=== PATIENT | female | born 1955 | race Caucasian/White ===

== ENCOUNTER 2017-12-12 11:09 | Emergency (ER) | payer OTHER ==
[~2017-12-12] VITALS: Ht 144.8 cm; Wt 59.0 kg
[~2017-12-12 11:09] MED LIST: LEVE100S PO; LEVOTHYROXINE; LISINOPRIL; METOCLOPRAMIDE; OMEPRAZOLE
[2017-12-12] MEDS ORDERED: SODIUM CHLORIDE 0.9% 1,000 ML IV ONE (11:46)
[2017-12-12 12:54] LABS: EOSINOPHILS % 1.8 % (0.0-5.0); HEMATOCRIT. 43.3 % (36.0-48.0); HEMOGLOBIN. 14.2 g/dL (12.0-16.0); LYMPHOCYTES % 15.2 % (20.0-50.0); MEAN CORPUSCULAR HEMOGLOBIN 27.8 pg (28.0-32.0); MEAN CORPUSCULAR VOLUME 84.3 fL (81.0-99.0); MEAN PLATELET VOLUME 10.8 fl (7.4-10.4); MONOCYTES % 7.5 % (2.0-8.0); NEUTROPHILS % 74.5 % (40.0-76.0); PLATELET 271 x1000/uL (130-400); RED BLOOD CELL COUNT 5.13 mill/uL (4.2-5.4); RED CELL DISTRIBUTION WIDTH 15.5 % (11.6-14.6)
[2017-12-12 13:01] LABS: CHLORIDE 107 mEq/L (98-107)
[2017-12-12 14:30] VITALS: BP 140/81
== END 2017-12-12 14:33 | disposition home or self-care (01) ==
LOC: ER 11:17
DX: R19.7 Diarrhea, unspecified (principal); R53.1 Weakness; E78.00 Pure hypercholesterolemia, unspecified; I10 Essential (primary) hypertension; Z88.0 Allergy status to penicillin; Z86.73 Personal history of transient ischemic attack (TIA), and cerebral infarction without residual deficits
CPT/HCPCS: 36415; 71045; 80053; 83690; 85025; 87804; 93005; 96360; 99285; J7030

== ENCOUNTER 2018-08-09 11:19 | Inpatient (IN) | payer OTHER, MEDICAID ==
[~2018-08-09] VITALS: Ht 157.5 cm; Wt 60.8 kg
[2018-08-09 13:19] LABS: BASOPHILS % 0.7 % (0.0-2.0); EOSINOPHILS % 3.8 % (0.0-5.0); HEMATOCRIT. 42.5 % (36.0-48.0); LYMPHOCYTES % 24.9 % (20.0-50.0); MEAN CORPUSCULAR HEMOGLOBIN 29.3 pg (28.0-32.0); MEAN CORPUSCULAR VOLUME 88.8 fL (81.0-99.0); MEAN PLATELET VOLUME 11.5 fl (7.4-10.4); MONOCYTES % 10.3 % (2.0-8.0); NEUTROPHILS % 60.3 % (40.0-76.0); PLATELET 274 x1000/uL (130-400); RED BLOOD CELL COUNT 4.79 mill/uL (4.2-5.4)
[2018-08-09 13:21] LABS: CHLORIDE 106 mEq/L (98-107)
[2018-08-09 18:42] LABS: CLARITY URINE CLEAR (CLEAR); COLOR URINE DARK YELLOW (YELLOW); KETONES URINE NEGATIVE (NEGATIVE); LEUKOCYTE ESTERASE URINE TRACE (NEGATIVE); NITRITE URINE NEGATIVE (NEGATIVE); OCCULT BLOOD URINE TRACE (NEGATIVE); PH URINE 6.5 (4.5-8.0); PROTEIN URINE NEGATIVE (NEGATIVE); SPECIFIC GRAVITY URINE 1.017 (1.005-1.030); UROBILINOGEN URINE 0.2 E.U./dL (0.2-1.0)
[2018-08-09 18:56] LABS: *AMPHETAMINES SCREEN URINE NEGATIVE (NEGATIVE); *BENZODIAZEPINES SCREEN URINE NEGATIVE (NEGATIVE)
[2018-08-09 18:57] LABS: *BARBITURATES SCREEN URINE NEGATIVE (NEGATIVE); *COCAINE SCREEN URINE NEGATIVE (NEGATIVE); CANNABINOID URINE SCREEN NEGATIVE (NEGATIVE); METHADONE URINE SCREEN NEGATIVE (NEGATIVE); OPIATES URINE SCREEN NEGATIVE (NEGATIVE); PHENCYCLIDINE URINE SCREEN NEGATIVE (NEGATIVE)
[2018-08-09] MEDS ORDERED: DIATR MEGLU/DIATRIZOATE SOLN 30ML ONE (20:36)
[2018-08-09] MEDS ORDERED: LEVOFLOXACIN 500MG PREMIX 100 ML IV ONE (22:00)
[2018-08-09] MEDS ORDERED: SODIUM CHLORIDE 0.9% 500 ML IV ONE (22:00)
[2018-08-09] MEDS ORDERED: MAGNESIUM/ALUMINUM HYDROXIDE/SIMETHICONE 30ML UDC PO PRN (23:15)
[2018-08-09] MEDS ORDERED: DOCUSATE SODIUM 100MG CAPSULE PO PRN (23:15)
[2018-08-09] MEDS ORDERED: IPRATROPIUM/ALBUTEROL 0.5-3(2.5)MG/3ML NEB INH PRN (23:15)
[2018-08-09] MEDS ORDERED: HYDROCODONE/ACETAMINOPHEN 5/325MG TABLET PO PRN (23:15)
[2018-08-09] MEDS ORDERED: ONDANSETRON HCL 4MG/2ML INJ IV PRN (23:15)
[2018-08-09] MEDS ORDERED: ACETAMINOPHEN 325MG TABLET PO PRN (23:15)
[2018-08-09] MEDS ORDERED: LEVOFLOXACIN 500MG PREMIX 100 ML IV SCH (23:15)
[2018-08-09] MEDS ORDERED: CLONIDINE 0.1MG TABLET PO PRN (23:15)
[2018-08-09] MEDS ORDERED: GUAIFENESIN 200MG/10ML SUGAR FREE UDC PO PRN (23:15)
[2018-08-10 01:04] LABS: CHLORIDE 107 mEq/L (98-107)
[2018-08-10 03:00] VITALS: BP 151/72
[2018-08-10 06:38] LABS: EOSINOPHILS % 1.7 % (0.0-5.0); HEMATOCRIT. 40.1 % (36.0-48.0); HEMOGLOBIN. 13.6 g/dL (12.0-16.0); LYMPHOCYTES % 18.2 % (20.0-50.0); MEAN CORPUSCULAR HEMOGLOBIN 29.7 pg (28.0-32.0); MEAN CORPUSCULAR VOLUME 87.9 fL (81.0-99.0); MEAN PLATELET VOLUME 11.4 fl (7.4-10.4); MONOCYTES % 9.1 % (2.0-8.0); PLATELET 252 x1000/uL (130-400); RED BLOOD CELL COUNT 4.56 mill/uL (4.2-5.4); RED CELL DISTRIBUTION WIDTH 12.8 % (11.6-14.6)
[2018-08-10 07:36] LABS: LDL CHOLESTEROL 106 mg/dL (5-100)
[2018-08-10 07:37] LABS: CREATINE KINASE 44 IU/L (26-192); HDL CHOLESTEROL 33 mg/dL (40-59)
[2018-08-10 07:42] LABS: CREATINE KINASE MB FRACTION < 1.0 ng/mL (0.5-3.6)
[2018-08-10 08:07] VITALS: BP 146/71
[2018-08-10] MEDS: ENOXAPARIN 40MG/0.4ML SYR SUBCUT SCH (09:43)
[2018-08-10] MEDS ORDERED: LISI2.5T47 MT (11:49)
[2018-08-10] MEDS ORDERED: LEVO100T9 MT (11:49)
[2018-08-10] MEDS ORDERED: OMEP20TA15 PO (11:52)
[2018-08-10 12:00] VITALS: BP 138/79
[2018-08-10] MEDS ORDERED: ACETAMINOPHEN 325MG TABLET PO PRN (13:45)
[2018-08-10] MEDS ORDERED: HYDROCODONE/ACETAMINOPHEN 5/325MG TABLET PO PRN (13:45)
[2018-08-10] MEDS: LISINOPRIL 20MG TABLET PO SCH (14:17)
[2018-08-10 16:00] VITALS: BP 138/79
[2018-08-10 16:46] LABS: CREATINE KINASE 64 IU/L (26-192)
[2018-08-10 16:47] LABS: CREATINE KINASE MB FRACTION < 1.0 ng/mL (0.5-3.6)
[2018-08-10] MEDS: LEVETIRACETAM 500MG/5ML CUP PO SCH (17:35)
[2018-08-10 20:00] VITALS: BP 123/81
[2018-08-10] MEDS ORDERED: LEVOFLOXACIN 500MG PREMIX 100 ML IV SCH (22:00)
[2018-08-11] VITALS: BP 133/50
[2018-08-11 04:00] VITALS: BP 131/77
[2018-08-11 07:15] LABS: BASOPHILS % 0.9 % (0.0-2.0); EOSINOPHILS % 4.2 % (0.0-5.0); HEMATOCRIT. 38.3 % (36.0-48.0); LYMPHOCYTES % 24.3 % (20.0-50.0); MEAN CORPUSCULAR HEMOGLOBIN 29.8 pg (28.0-32.0); MEAN CORPUSCULAR VOLUME 87.5 fL (81.0-99.0); MEAN PLATELET VOLUME 11.6 fl (7.4-10.4); MONOCYTES % 11.4 % (2.0-8.0); NEUTROPHILS % 59.2 % (40.0-76.0); PLATELET 249 x1000/uL (130-400); RED BLOOD CELL COUNT 4.37 mill/uL (4.2-5.4); RED CELL DISTRIBUTION WIDTH 13.1 % (11.6-14.6)
[2018-08-11 07:22] LABS: CHLORIDE 109 mEq/L (98-107)
[2018-08-11] MEDS ORDERED: LEVOTHYROXINE SODIUM 100MCG TABLET PO SCH (07:40)
[2018-08-11] MEDS ORDERED: OMEPRAZOLE 20MG CAPSULE EXTENDED RELEASE PO SCH (07:40)
[2018-08-11 08:00] VITALS: BP 135/70
[2018-08-11] MEDS: LEVETIRACETAM 500MG/5ML CUP PO SCH (09:04)
[2018-08-11] MEDS: ENOXAPARIN 40MG/0.4ML SYR SUBCUT SCH (09:04)
[2018-08-11] MEDS: LISINOPRIL 20MG TABLET PO SCH (09:05)
[2018-08-11 12:12] VITALS: BP 128/79
[2018-08-11 14:55] VITALS: BP 128/79
[2018-08-11] MEDS ORDERED: SODIUM CHLORIDE 0.9% 1,000 ML IV ONE (15:15)
[2018-08-11 16:00] VITALS: BP 131/76
== END 2018-08-11 17:25 | disposition home or self-care (01) | DRG 919 ==
LOC: ER 11:19 → 7WST 19:45 → EDBEDREQ 19:53 → EDBEDREQTM 19:53 → CANRESERV 08-10 02:04 → ENRESERV 08-10 02:04
PROVIDERS: ADMIT Internal Medicine; ATTEND Internal Medicine
PROC: 0DH63UZ Insertion of Feeding Device into Stomach, Percutaneous Approach (ICD-10-PCS; principal; 2018-08-09)
DX: T85.528A Displacement of other gastrointestinal prosthetic devices, implants and grafts, initial encounter (principal); G82.50 Quadriplegia, unspecified; I69.351 Hemiplegia and hemiparesis following cerebral infarction affecting right dominant side; Y83.3 Surgical operation with formation of external stoma as the cause of abnormal reaction of the patient, or of later complication, without mention of misadventure at the time of the procedure; E03.9 Hypothyroidism, unspecified; E78.5 Hyperlipidemia, unspecified; G40.909 Epilepsy, unspecified, not intractable, without status epilepticus; I10 Essential (primary) hypertension; M41.9 Scoliosis, unspecified; S30.810A Abrasion of lower back and pelvis, initial encounter; X58.XXXA Exposure to other specified factors, initial encounter; Y93.89 Activity, other specified; Y99.8 Other external cause status; Z93.3 Colostomy status; Z90.49 Acquired absence of other specified parts of digestive tract; Z87.01 Personal history of pneumonia (recurrent); Z74.01 Bed confinement status; Y92.89 Other specified places as the place of occurrence of the external cause; Z79.899 Other long term (current) drug therapy; Z88.0 Allergy status to penicillin; Z93.0 Tracheostomy status
CPT/HCPCS: 36415; 43760; 71045; 71250; 74018; 80048; 80053; 80061; 80305; 81003; 82550; 82553; 83036; 83735; 83880; 84443; 84484; 85025; 87040; 87086; 93005; 93970; 99285; A6261; J1650; J1956; J7030; J7040; Q9963

== ENCOUNTER 2025-02-22 09:14 | Inpatient (IN) | payer BC, OTHER ==
[~2025-02-22] VITALS: Ht 152.4 cm; Wt 57.6 kg
[2025-02-22] VITALS (45 sets, daily range): BP systolic 79–132; BP diastolic 54–81; PULSE 81–122; RESP 18–24; TEMP 36.8–36.9; O2SAT 95–100
[~2025-02-22 09:14] MED LIST changes: +LEVO100T9 MT; -LEVOTHYROXINE; +LISI2.5T47 MT; -LISINOPRIL; -METOCLOPRAMIDE; +OMEP20TA15 PO; -OMEPRAZOLE
[2025-02-22] MEDS: SODIUM CHLORIDE 0.9% (SEPSIS BOLUS) IV ONE (09:53)
[2025-02-22] MEDS: MEROPENEM 1G/100ML 100 ML IV ONE (10:11)
[2025-02-22 10:22] LABS: HEMATOCRIT. 49.1 % (36.0-48.0); HEMOGLOBIN. 14.6 g/dL (12.0-16.0); MEAN CORPUSCULAR HEMOGLOBIN 27.8 pg (28.0-32.0); MEAN CORPUSCULAR HGB CONC 29.8 g/dL (31.0-37.0); MEAN CORPUSCULAR VOLUME 93.1 fL (81.0-99.0); RED BLOOD CELL COUNT 5.28 mill/uL (4.2-5.4); RED CELL DISTRIBUTION WIDTH 14.5 % (11.6-14.6); WHITE BLOOD COUNT 30.8 x1000/uL (4.5-11.0)
[2025-02-22 10:30] LABS: BG BASE EXCESS -10.2 mmol/L (-2.0-3.0); BG CARBOXYHEMOGLOBIN 0.5 % (0.5-1.5); BG DEOXYHEMOGLOBIN 8.2 % (0.0-5.0); BG FRACTION INSPIRED OXYGEN 100; BG HCO3 ACT 25.7 mmol/L (21.0-28.0); BG METHEMOGLOBIN 0.3 % (0.5-1.5); BG OXYGEN SATURATION 91.7 % (94.0-98.0); BG PCO2 126.1 mmHg (32.0-45.0); BG PH 6.927 (7.350-7.450); BG PO2 92.4 mmHg (83.0-108.0); BG SAMPLE SITE RIGHT RADIAL; BG TOTAL HEMOGLOBIN 15.1 g/dL (12.0-16.0); BG VENT MODE MASK - NRB
[2025-02-22 10:34] LABS: CARBON DIOXIDE 16 mEq/L (21-32); CHLORIDE 105 mEq/L (98-107); POTASSIUM 4.2 mEq/L (3.5-5.1); SODIUM 140 mEq/L (136-145)
[2025-02-22 10:35] LABS: CALCIUM 9.5 mg/dL (8.7-10.4)
[2025-02-22 10:39] LABS: CREATININE 1.2 mg/dL (0.6-1.0); DIFFERENTIAL COMMENT 1
[2025-02-22 10:40] LABS: GLUCOSE 307 mg/dL (70-105); TROPONIN I HIGH SENSITIVITY 20 ng/L (3.0-34); UREA NITROGEN BLOOD 25 mg/dL (9-23)
[2025-02-22 10:41] LABS: ALANINE AMINOTRANSFERASE 13 IU/L (10-49); ALBUMIN 4.1 g/dL (3.2-4.8); ASPARTATE AMINOTRANSFERASE 14 IU/L (<34)
[2025-02-22 10:42] LABS: BILIRUBIN DIRECT 0.1 mg/dL (<=3.0); BILIRUBIN TOTAL 0.4 mg/dL (0.1-1.0); PROTEIN TOTAL 8.5 g/dL (6.0-8.3); PROTHROMBIN TIME 10.9 sec (9.6-11.0)
[2025-02-22 10:43] LABS: LACTIC ACID 12.1 mmol/L (0.4-2.0)
[2025-02-22] MEDS: ETOMIDATE 2MG/ML 10ML VIAL IV ONE (11:10)
[2025-02-22] MEDS: SUCCINYLCHOLINE CHLORIDE 200MG/10ML IV ONE (11:10)
[2025-02-22 11:30] LABS: PLATELET ESTIMATE NORMAL
[2025-02-22 11:32] LABS: MEAN PLATELET VOLUME 12.5 fl (7.4-10.4); PLATELET 248 x1000/uL (130-400)
[2025-02-22 11:37] LABS: CLARITY URINE CLOUDY (CLEAR); COLOR URINE YELLOW (YELLOW); GLUCOSE URINE NEGATIVE (NEGATIVE); KETONES URINE NEGATIVE (NEGATIVE); LEUKOCYTE ESTERASE URINE 3+ (NEGATIVE); NITRITE URINE NEGATIVE (NEGATIVE); OCCULT BLOOD URINE 2+ (NEGATIVE); PH URINE 6.5 (4.5-8.0); PROTEIN URINE 3+ (NEGATIVE); SPECIFIC GRAVITY URINE 1.016 (1.005-1.030)
[2025-02-22] MEDS: VANCOMYCIN 1G PREMIX 200 ML IV ONE (11:37)
[2025-02-22 11:51] LABS: BACTERIA URINE 2+; COARSE GRANULAR CASTS URINE 0-5 /lpf; RBC URINE 15-25 /hpf (0-2); SQUAMOUS EPITHELIAL CELL URINE 1+ /lpf (RARE/1+); WBC URINE 50-100 /hpf (0-2); YEAST URINE NONE SEEN
[2025-02-22] MEDS ORDERED: MIDAZOLAM HCL 100 MG in DEXT 5% WATER 80 ML IV ONE (12:15)
[2025-02-22 12:37] LABS: BG BASE EXCESS -2.8 mmol/L (-2.0-3.0); BG CARBOXYHEMOGLOBIN 0.4 % (0.5-1.5); BG FRACTION INSPIRED OXYGEN 100; BG HCO3 ACT 19.3 mmol/L (21.0-28.0); BG METHEMOGLOBIN 0.3 % (0.5-1.5); BG OXYHEMOGLOBIN 99.3 % (94.0-98.0); BG PCO2 26.8 mmHg (32.0-45.0); BG PH 7.475 (7.350-7.450); BG PO2 272.4 mmHg (83.0-108.0); BG SAMPLE SITE LEFT RADIAL; BG TOTAL HEMOGLOBIN 13.9 g/dL (12.0-16.0); BG VENT MODE VENT - PRVC
[2025-02-22] MEDS: MIDAZOLAM 100MG/100ML PMX 100 ML IV ONE (12:38)
[2025-02-22 14:56] LABS: BG BASE EXCESS 0.6 mmol/L (-2.0-3.0); BG CARBOXYHEMOGLOBIN 0.1 % (0.5-1.5); BG DEOXYHEMOGLOBIN 0.2 % (0.0-5.0); BG FRACTION INSPIRED OXYGEN 85; BG METHEMOGLOBIN 0.3 % (0.5-1.5); BG OXYGEN SATURATION 99.8 % (94.0-98.0); BG OXYHEMOGLOBIN 99.4 % (94.0-98.0); BG PCO2 34.7 mmHg (32.0-45.0); BG PH 7.457 (7.350-7.450); BG PO2 250.4 mmHg (83.0-108.0); BG SAMPLE SITE RIGHT RADIAL; BG TOTAL HEMOGLOBIN 13.6 g/dL (12.0-16.0); BG VENT MODE VENT - AC/PRVC
[2025-02-22] MEDS ORDERED: ONDANSETRON HCL 4MG/2ML INJ IV PRN (17:15)
[2025-02-22] MEDS ORDERED: DEXTROSE 50% WATER 50ML SYRINGE IV PRN (17:15)
[2025-02-22] MEDS: BLOOD SUGAR DIAGNOSTIC STRIP TEST SCH (17:30)
[2025-02-22] MEDS ORDERED: VASOPRESSIN 20 UNIT in SODIUM CHLORIDE 0.9% 99 ML IV PRN (17:30)
[2025-02-22] MEDS: PANTOPRAZOLE SODIUM 40 MG/VIAL IV SCH (18:24)
[2025-02-22] MEDS: MIDAZOLAM 100MG/100ML PMX 100 ML IV PRN (18:24)
[2025-02-22] MEDS: DEXT 5%/0.9% NACL 1,000 ML IV SCH (18:24)
[2025-02-22] MEDS: AZITHROMYCIN 500MG/250ML 250 ML IV SCH (18:25)
[2025-02-22] MEDS: ENOXAPARIN 40MG/0.4ML SYR SUBCUT SCH (18:25)
[2025-02-22] MEDS: INSULIN LISPRO 100 UNITS/ML SUBCUT SCH (18:29)
[2025-02-22] MEDS ORDERED: TRAZ-252 MT (19:39)
[2025-02-22] MEDS ORDERED: LINA5TAB MT (19:39)
[2025-02-22] MEDS: NOREPINEPHRINE 8MG/250ML PMX 250 ML IV PRN (20:35)
[2025-02-22 21:42] LABS: *AMPHETAMINES SCREEN URINE NEGATIVE (NEGATIVE); *BARBITURATES SCREEN URINE NEGATIVE (NEGATIVE); *BENZODIAZEPINES SCREEN URINE PRESUMPTIVE POSITIVE (NEGATIVE)
[2025-02-22 21:43] LABS: *COCAINE SCREEN URINE NEGATIVE (NEGATIVE); CANNABINOID URINE SCREEN NEGATIVE (NEGATIVE); ECSTASY MDMA SCREEN URINE NEGATIVE (NEGATIVE); METHADONE URINE SCREEN NEGATIVE (NEGATIVE); OPIATES URINE SCREEN NEGATIVE (NEGATIVE); PHENCYCLIDINE URINE SCREEN NEGATIVE (NEGATIVE)
[2025-02-22] MEDS: PIPERACILLIN/TAZO 3.375G/50ML 50 ML IV SCH (22:00)
[2025-02-22] MEDS ORDERED: ALEN70TA79 PO (22:58)
[2025-02-22] MEDS ORDERED: OMEP40CA20 PO (22:58)
[2025-02-22] MEDS ORDERED: KEPPSOL PO (22:58)
[2025-02-22] MEDS ORDERED: TRAZ-251 PO (22:58)
[2025-02-22] MEDS ORDERED: CHOL-36 PO (22:59)
[2025-02-22 23:36] LABS: TROPONIN I HIGH SENSITIVITY 45 ng/L (3.0-34)
[2025-02-23] VITALS (108 sets, daily range): BP systolic 93–185; BP diastolic 60–121; PULSE 74–96; RESP 14–21; TEMP 36.7–37.6; O2SAT 96–100
[2025-02-23 06:34] LABS: CARBON DIOXIDE 24 mEq/L (21-32); CHLORIDE 111 mEq/L (98-107); POTASSIUM 3.2 mEq/L (3.5-5.1); SODIUM 144 mEq/L (136-145)
[2025-02-23 06:36] LABS: CALCIUM 8.5 mg/dL (8.7-10.4)
[2025-02-23 06:40] LABS: CREATININE 0.9 mg/dL (0.6-1.0); GLUCOSE 202 mg/dL (70-105); UREA NITROGEN BLOOD 24 mg/dL (9-23)
[2025-02-23] MEDS: LEVOTHYROXINE SODIUM 100MCG TABLET GT SCH (06:47)
[2025-02-23 06:58] LABS: TROPONIN I HIGH SENSITIVITY 41 ng/L (3.0-34)
[2025-02-23] MEDS: LIDOCAINE HCL 1% 10 MG/ML 10ML VIAL ONE (08:41)
[2025-02-23] MEDS ORDERED: PNEUMOCOCCAL 20-VAL CONJ-DIP CRM 0.5ML IM ONE (09:00)
[2025-02-23] MEDS ORDERED: VANCOMYCIN 750MG/150ML (BAXTER) IV SCH (10:00)
[2025-02-23 10:25] LABS: BASOPHILS % 0.7 % (0.0-2.0); DIFFERENTIAL COMMENT 0; EOSINOPHILS % 0.7 % (0.0-5.0); HEMATOCRIT. 37.8 % (36.0-48.0); HEMOGLOBIN. 12.6 g/dL (12.0-16.0); MEAN CORPUSCULAR HEMOGLOBIN 28.5 pg (28.0-32.0); MEAN CORPUSCULAR HGB CONC 33.3 g/dL (31.0-37.0); MEAN CORPUSCULAR VOLUME 85.6 fL (81.0-99.0); MEAN PLATELET VOLUME 11.3 fl (7.4-10.4); MONOCYTES % 11.2 % (2.0-8.0); NEUTROPHILS % 68.4 % (40.0-76.0); PLATELET 158 x1000/uL (130-400); RED BLOOD CELL COUNT 4.42 mill/uL (4.2-5.4); RED CELL DISTRIBUTION WIDTH 13.4 % (11.6-14.6); WHITE BLOOD COUNT 11.8 x1000/uL (4.5-11.0)
[2025-02-23] MEDS: VANCOMYCIN 750MG/150ML (BAXTER) IV SCH (13:12)
[2025-02-23 17:50] LABS: BG BASE EXCESS 1.3 mmol/L (-2.0-3.0); BG CARBOXYHEMOGLOBIN 0.1 % (0.5-1.5); BG DEOXYHEMOGLOBIN 1.1 % (0.0-5.0); BG FRACTION INSPIRED OXYGEN 40; BG HCO3 ACT 21.7 mmol/L (21.0-28.0); BG METHEMOGLOBIN 0.3 % (0.5-1.5); BG OXYGEN SATURATION 98.9 % (94.0-98.0); BG OXYHEMOGLOBIN 98.5 % (94.0-98.0); BG PCO2 23.9 mmHg (32.0-45.0); BG PH 7.575 (7.350-7.450); BG PO2 126.8 mmHg (83.0-108.0); BG SAMPLE SITE RIGHT RADIAL; BG TOTAL HEMOGLOBIN 13.4 g/dL (12.0-16.0); BG VENT MODE VENT - PRVC
[2025-02-23] MEDS: POTASSIUM CHLORIDE 20MEQ/PACKET PO NR (23:11)
[2025-02-24] VITALS (89 sets, daily range): BP systolic 96–191; BP diastolic 52–87; PULSE 56–81; RESP 12–20; TEMP 36.4–37; O2SAT 97–100
[2025-02-24 05:44] LABS: BASOPHILS % 1.2 % (0.0-2.0); HEMATOCRIT. 36.2 % (36.0-48.0); HEMOGLOBIN. 12.3 g/dL (12.0-16.0); LYMPHOCYTES % 22.8 % (20.0-50.0); MEAN CORPUSCULAR HEMOGLOBIN 29.6 pg (28.0-32.0); MEAN CORPUSCULAR HGB CONC 33.8 g/dL (31.0-37.0); MEAN CORPUSCULAR VOLUME 87.4 fL (81.0-99.0); MONOCYTES % 14.5 % (2.0-8.0); NEUTROPHILS % 58.5 % (40.0-76.0); PLATELET 159 x1000/uL (130-400); RED BLOOD CELL COUNT 4.14 mill/uL (4.2-5.4); RED CELL DISTRIBUTION WIDTH 13.5 % (11.6-14.6); WHITE BLOOD COUNT 8.2 x1000/uL (4.5-11.0)
[2025-02-24 05:51] LABS: CHLORIDE 114 mEq/L (98-107); POTASSIUM 3.8 mEq/L (3.5-5.1); SODIUM 145 mEq/L (136-145)
[2025-02-24 05:52] LABS: CALCIUM 7.9 mg/dL (8.7-10.4); CARBON DIOXIDE 23 mEq/L (21-32)
[2025-02-24 05:57] LABS: CREATININE 0.9 mg/dL (0.6-1.0); GLUCOSE 114 mg/dL (70-105); UREA NITROGEN BLOOD 17 mg/dL (9-23)
[2025-02-24 08:28] LABS: BG BASE EXCESS -4.6 mmol/L (-2.0-3.0); BG CARBOXYHEMOGLOBIN 0.2 % (0.5-1.5); BG DEOXYHEMOGLOBIN 1.2 % (0.0-5.0); BG FRACTION INSPIRED OXYGEN 40; BG HCO3 ACT 18.3 mmol/L (21.0-28.0); BG METHEMOGLOBIN 0.3 % (0.5-1.5); BG OXYGEN SATURATION 98.8 % (94.0-98.0); BG OXYHEMOGLOBIN 98.3 % (94.0-98.0); BG PCO2 27.5 mmHg (32.0-45.0); BG PH 7.441 (7.350-7.450); BG PO2 140.9 mmHg (83.0-108.0); BG SAMPLE SITE RIGHT RADIAL; BG TOTAL HEMOGLOBIN 11.8 g/dL (12.0-16.0); BG TOTAL RESPIRATORY RATE 14 b/min; BG VENT MODE VENT-PRVC
[2025-02-24] MEDS: CLONIDINE 0.1MG TABLET PO PRN (09:16)
[2025-02-24] MEDS: ACETAMINOPHEN 325MG TABLET PO PRN (09:17)
[2025-02-24] MEDS: VANCOMYCIN 1.25GM/250ML 250 ML IV SCH (16:13)
[2025-02-25] VITALS (106 sets, daily range): BP systolic 106–190; BP diastolic 52–86; PULSE 52–77; RESP 14–29; TEMP 36.4–37.1; O2SAT 94–100
[2025-02-25 05:28] LABS: BASOPHILS % 0.8 % (0.0-2.0); EOSINOPHILS % 3.5 % (0.0-5.0); HEMATOCRIT. 32.6 % (36.0-48.0); HEMOGLOBIN. 10.9 g/dL (12.0-16.0); LYMPHOCYTES % 18.5 % (20.0-50.0); MEAN CORPUSCULAR HEMOGLOBIN 29.2 pg (28.0-32.0); MEAN CORPUSCULAR HGB CONC 33.5 g/dL (31.0-37.0); MEAN CORPUSCULAR VOLUME 87.1 fL (81.0-99.0); MEAN PLATELET VOLUME 11.6 fl (7.4-10.4); MONOCYTES % 12.6 % (2.0-8.0); NEUTROPHILS % 64.6 % (40.0-76.0); PLATELET 141 x1000/uL (130-400); RED BLOOD CELL COUNT 3.74 mill/uL (4.2-5.4); RED CELL DISTRIBUTION WIDTH 13.5 % (11.6-14.6); WHITE BLOOD COUNT 7.8 x1000/uL (4.5-11.0)
[2025-02-25 05:43] LABS: POTASSIUM 3.3 mEq/L (3.5-5.1)
[2025-02-25 05:44] LABS: CALCIUM 7.2 mg/dL (8.7-10.4)
[2025-02-25 05:49] LABS: CREATININE 1.1 mg/dL (0.6-1.0)
[2025-02-25] MEDS: MEROPENEM 1G/100ML 100 ML IV SCH (17:47)
[2025-02-26] VITALS (93 sets, daily range): BP systolic 104–193; BP diastolic 54–124; PULSE 53–111; RESP 14–34; TEMP 36.7–37.3; O2SAT 97–100
[2025-02-26 05:25] LABS: BASOPHILS % 0.6 % (0.0-2.0); EOSINOPHILS % 2.6 % (0.0-5.0); HEMATOCRIT. 33.7 % (36.0-48.0); HEMOGLOBIN. 11.1 g/dL (12.0-16.0); LYMPHOCYTES % 15.1 % (20.0-50.0); MEAN CORPUSCULAR HEMOGLOBIN 28.8 pg (28.0-32.0); MEAN CORPUSCULAR HGB CONC 32.9 g/dL (31.0-37.0); MEAN CORPUSCULAR VOLUME 87.7 fL (81.0-99.0); MEAN PLATELET VOLUME 12.2 fl (7.4-10.4); MONOCYTES % 9.3 % (2.0-8.0); NEUTROPHILS % 72.4 % (40.0-76.0); PLATELET 156 x1000/uL (130-400); RED BLOOD CELL COUNT 3.84 mill/uL (4.2-5.4); RED CELL DISTRIBUTION WIDTH 13.8 % (11.6-14.6); WHITE BLOOD COUNT 10.3 x1000/uL (4.5-11.0)
[2025-02-26 05:37] LABS: POTASSIUM 3.7 mEq/L (3.5-5.1)
[2025-02-26 05:38] LABS: CALCIUM 7.7 mg/dL (8.7-10.4)
[2025-02-26 05:43] LABS: CREATININE 1.3 mg/dL (0.6-1.0)
[2025-02-26 08:14] LABS: BG BASE EXCESS -6.6 mmol/L (-2.0-3.0); BG CARBOXYHEMOGLOBIN 0.3 % (0.5-1.5); BG DEOXYHEMOGLOBIN 2.4 % (0.0-5.0); BG FRACTION INSPIRED OXYGEN 35; BG HCO3 ACT 16.6 mmol/L (21.0-28.0); BG METHEMOGLOBIN 0.3 % (0.5-1.5); BG OXYGEN SATURATION 97.6 % (94.0-98.0); BG PCO2 26.8 mmHg (32.0-45.0); BG PH 7.411 (7.350-7.450); BG PO2 90.8 mmHg (83.0-108.0); BG SAMPLE SITE RIGHT RADIAL; BG TOTAL HEMOGLOBIN 11.7 g/dL (12.0-16.0); BG VENT MODE VENT - PRVC
[2025-02-26] MEDS: HYDRALAZINE 20MG/ML VIAL IV PRN (17:03)
[2025-02-26] MEDS: PROPOFOL 10MG/ML 100ML 100 ML IV PRN (19:35)
[2025-02-27] VITALS (87 sets, daily range): BP systolic 96–190; BP diastolic 49–126; PULSE 56–139; RESP 14–36; TEMP 36.8–37; O2SAT 94–100
[2025-02-27 08:44] LABS: BG BASE EXCESS -1.7 mmol/L (-2.0-3.0); BG CARBOXYHEMOGLOBIN 0.6 % (0.5-1.5); BG DEOXYHEMOGLOBIN 1.7 % (0.0-5.0); BG FRACTION INSPIRED OXYGEN 30; BG HCO3 ACT 21.5 mmol/L (21.0-28.0); BG OXYGEN SATURATION 98.3 % (94.0-98.0); BG OXYHEMOGLOBIN 97.7 % (94.0-98.0); BG PCO2 31.9 mmHg (32.0-45.0); BG PH 7.447 (7.350-7.450); BG PO2 104.2 mmHg (83.0-108.0); BG SAMPLE SITE RIGHT RADIAL; BG TOTAL HEMOGLOBIN 12.4 g/dL (12.0-16.0); BG VENT MODE VENT - AC/PRVC
[2025-02-27] MEDS ORDERED: ETOMIDATE 2MG/ML 10ML VIAL IV ONE (10:06)
[2025-02-27 10:26] LABS: BASOPHILS % 0.4 % (0.0-2.0); EOSINOPHILS % 0.8 % (0.0-5.0); HEMATOCRIT. 34.6 % (36.0-48.0); HEMOGLOBIN. 11.4 g/dL (12.0-16.0); MEAN CORPUSCULAR HEMOGLOBIN 28.4 pg (28.0-32.0); MEAN PLATELET VOLUME 11.3 fl (7.4-10.4); MONOCYTES % 7.6 % (2.0-8.0); NEUTROPHILS % 78.2 % (40.0-76.0); PLATELET 187 x1000/uL (130-400); RED BLOOD CELL COUNT 4.03 mill/uL (4.2-5.4); RED CELL DISTRIBUTION WIDTH 13.9 % (11.6-14.6)
[2025-02-27 10:33] LABS: POTASSIUM 3.1 mEq/L (3.5-5.1)
[2025-02-27] MEDS: ACETAMINOPHEN 650MG/20.3ML UDC PO PRN (10:35)
[2025-02-27 10:40] LABS: CREATININE 1.3 mg/dL (0.6-1.0)
[2025-02-27] MEDS ORDERED: NALOXONE HCL 0.4MG/ML VIAL IV PRN (10:45)
[2025-02-27] MEDS: MORPHINE SULFATE 2 MG/ML INJ (NOT FOR IM USE) IV NR (11:09)
[2025-02-27] MEDS: KCL 20MEQ/100ML PREMIX 100 ML IV SCH (12:16)
[2025-02-27 13:43] LABS: BG BASE EXCESS -4.3 mmol/L (-2.0-3.0); BG CARBOXYHEMOGLOBIN 0.6 % (0.5-1.5); BG FRACTION INSPIRED OXYGEN 30; BG HCO3 ACT 18.5 mmol/L (21.0-28.0); BG METHEMOGLOBIN 0.3 % (0.5-1.5); BG OXYHEMOGLOBIN 96.1 % (94.0-98.0); BG PCO2 27.8 mmHg (32.0-45.0); BG PH 7.441 (7.350-7.450); BG PO2 81.7 mmHg (83.0-108.0); BG SAMPLE SITE RIGHT RADIAL; BG TOTAL HEMOGLOBIN 12.8 g/dL (12.0-16.0); BG VENT MODE VENT - CPAP
[2025-02-27 17:26] LABS: POTASSIUM 3.9 mEq/L (3.5-5.1)
[2025-02-27 17:27] LABS: CALCIUM 8.9 mg/dL (8.7-10.4)
[2025-02-27 17:32] LABS: CREATININE 1.3 mg/dL (0.6-1.0)
[2025-02-27] MEDS: MORPHINE SULFATE 2 MG/ML INJ (NOT FOR IM USE) IV PRN (17:33)
[2025-02-27] MEDS: RACEPINEPHRINE 2.25% 0.5ML NEB VIAL HHN NR (18:25)
[2025-02-27] MEDS: METHYLPREDNISOLONE SOD SUCC 125MG/2ML (ACT-O-VIAL) IV NR (18:40)
[2025-02-27] MEDS: PROPOFOL 10MG/ML 100ML 100 ML IV PRN (19:09)
[2025-02-27 22:07] LABS: BG BASE EXCESS -3.3 mmol/L (-2.0-3.0); BG CARBOXYHEMOGLOBIN 0.3 % (0.5-1.5); BG DEOXYHEMOGLOBIN 2.7 % (0.0-5.0); BG FRACTION INSPIRED OXYGEN 70; BG HCO3 ACT 20.2 mmol/L (21.0-28.0); BG METHEMOGLOBIN 0.3 % (0.5-1.5); BG OXYGEN SATURATION 97.3 % (94.0-98.0); BG OXYHEMOGLOBIN 96.7 % (94.0-98.0); BG PCO2 31.4 mmHg (32.0-45.0); BG PH 7.427 (7.350-7.450); BG SAMPLE SITE RIGHT RADIAL; BG TOTAL HEMOGLOBIN 11.1 g/dL (12.0-16.0); BG VENT MODE VENT - AC
[2025-02-28] VITALS (89 sets, daily range): BP systolic 88–202; BP diastolic 50–99; PULSE 55–110; RESP 14–46; TEMP 36.6–37; O2SAT 96–100
[2025-02-28] MEDS: METHYLPREDNISOLONE SOD SUCC 40MG/ML (ACT-O-VIAL) IV SCH (07:03)
[2025-02-28] MEDS: QUETIAPINE FUMARATE 25MG TABLET PO SCH (17:38)
[2025-03-01] VITALS (102 sets, daily range): BP systolic 130–183; BP diastolic 60–130; PULSE 66–124; RESP 14–27; TEMP 27.8–37.1; O2SAT 80–100
[2025-03-01 05:37] LABS: POTASSIUM 3.7 mEq/L (3.5-5.1)
[2025-03-01 05:38] LABS: BASOPHILS % 0.2 % (0.0-2.0); CALCIUM 9.9 mg/dL (8.7-10.4); HEMATOCRIT. 36.1 % (36.0-48.0); HEMOGLOBIN. 11.6 g/dL (12.0-16.0); LYMPHOCYTES % 13.1 % (20.0-50.0); MEAN CORPUSCULAR HEMOGLOBIN 28.1 pg (28.0-32.0); MEAN CORPUSCULAR HGB CONC 32.3 g/dL (31.0-37.0); MEAN CORPUSCULAR VOLUME 87.2 fL (81.0-99.0); MEAN PLATELET VOLUME 12.1 fl (7.4-10.4); MONOCYTES % 5.5 % (2.0-8.0); NEUTROPHILS % 81.2 % (40.0-76.0); PLATELET 241 x1000/uL (130-400); RED BLOOD CELL COUNT 4.14 mill/uL (4.2-5.4); RED CELL DISTRIBUTION WIDTH 13.9 % (11.6-14.6); WHITE BLOOD COUNT 17.3 x1000/uL (4.5-11.0)
[2025-03-01 05:42] LABS: CREATININE 1.3 mg/dL (0.6-1.0)
[2025-03-01 08:48] LABS: BG BASE EXCESS -1.6 mmol/L (-2.0-3.0); BG CARBOXYHEMOGLOBIN 0.1 % (0.5-1.5); BG FRACTION INSPIRED OXYGEN 40; BG HCO3 ACT 21.8 mmol/L (21.0-28.0); BG METHEMOGLOBIN 0.3 % (0.5-1.5); BG OXYHEMOGLOBIN 98.6 % (94.0-98.0); BG PCO2 32.9 mmHg (32.0-45.0); BG PO2 127.2 mmHg (83.0-108.0); BG SAMPLE SITE RIGHT RADIAL; BG TOTAL HEMOGLOBIN 12.7 g/dL (12.0-16.0); BG TOTAL RESPIRATORY RATE 16 b/min; BG VENT MODE VENT - AC
[2025-03-01 17:04] LABS: BG BASE EXCESS -1.6 mmol/L (-2.0-3.0); BG CARBOXYHEMOGLOBIN 0.3 % (0.5-1.5); BG DEOXYHEMOGLOBIN 1.3 % (0.0-5.0); BG FRACTION INSPIRED OXYGEN 40; BG METHEMOGLOBIN 0.3 % (0.5-1.5); BG OXYGEN SATURATION 98.7 % (94.0-98.0); BG OXYHEMOGLOBIN 98.1 % (94.0-98.0); BG PCO2 38.4 mmHg (32.0-45.0); BG PH 7.395 (7.350-7.450); BG PO2 113.6 mmHg (83.0-108.0); BG SAMPLE SITE RIGHT RADIAL; BG TOTAL HEMOGLOBIN 12.1 g/dL (12.0-16.0); BG VENT MODE VENT - CPAP
[2025-03-02] VITALS (70 sets, daily range): BP systolic 133–197; BP diastolic 65–147; PULSE 63–103; RESP 15–40; TEMP 36.8–37; O2SAT 99–100
[2025-03-02 06:08] LABS: HEMATOCRIT. 35.7 % (36.0-48.0); HEMOGLOBIN. 11.8 g/dL (12.0-16.0); MEAN CORPUSCULAR HEMOGLOBIN 28.9 pg (28.0-32.0); MEAN CORPUSCULAR VOLUME 87.5 fL (81.0-99.0); MEAN PLATELET VOLUME 11.4 fl (7.4-10.4); PLATELET 244 x1000/uL (130-400); RED BLOOD CELL COUNT 4.08 mill/uL (4.2-5.4); RED CELL DISTRIBUTION WIDTH 14.5 % (11.6-14.6); WHITE BLOOD COUNT 13.2 x1000/uL (4.5-11.0)
[2025-03-02 06:09] LABS: POTASSIUM 3.9 mEq/L (3.5-5.1)
[2025-03-02 06:10] LABS: CALCIUM 9.1 mg/dL (8.7-10.4)
[2025-03-02 06:15] LABS: CREATININE 1.1 mg/dL (0.6-1.0)
[2025-03-02 07:23] LABS: DIFFERENTIAL COMMENT 1
[2025-03-02] MEDS: AMLODIPINE 5MG TABLET PO SCH (12:59)
[2025-03-02 13:42] LABS: PLATELET ESTIMATE NORMAL
[2025-03-03] VITALS (52 sets, daily range): BP systolic 125–191; BP diastolic 64–96; PULSE 55–107; RESP 12–26; TEMP 36.6–36.9; O2SAT 96–100
[2025-03-03] MEDS: BLOOD SUGAR DIAGNOSTIC STRIP TEST SCH (05:36)
[2025-03-03] MEDS: INSULIN LISPRO 100 UNITS/ML SUBCUT SCH ×2 (05:39→18:03)
[2025-03-03 05:45] LABS: HEMATOCRIT. 37.8 % (36.0-48.0); HEMOGLOBIN. 12.1 g/dL (12.0-16.0); MEAN CORPUSCULAR HEMOGLOBIN 28.4 pg (28.0-32.0); MEAN CORPUSCULAR HGB CONC 31.9 g/dL (31.0-37.0); MEAN CORPUSCULAR VOLUME 88.8 fL (81.0-99.0); MEAN PLATELET VOLUME 11.5 fl (7.4-10.4); PLATELET 278 x1000/uL (130-400); RED BLOOD CELL COUNT 4.26 mill/uL (4.2-5.4); RED CELL DISTRIBUTION WIDTH 14.6 % (11.6-14.6); WHITE BLOOD COUNT 15.7 x1000/uL (4.5-11.0)
[2025-03-03 06:00] LABS: CALCIUM 9.9 mg/dL (8.7-10.4); POTASSIUM 3.8 mEq/L (3.5-5.1)
[2025-03-03 06:06] LABS: CREATININE 1.1 mg/dL (0.6-1.0)
[2025-03-03 07:12] LABS: DIFFERENTIAL COMMENT 1
[2025-03-03] MEDS ORDERED: ACETAMINOPHEN 650MG/20.3ML UDC GT PRN (14:38)
[2025-03-03] MEDS ORDERED: AMLODIPINE 5MG TABLET GT SCH (14:39)
[2025-03-03] MEDS ORDERED: QUETIAPINE FUMARATE 25MG TABLET GT SCH (14:40)
[2025-03-03] MEDS: CLONIDINE 0.1MG TABLET GT PRN (16:12)
[2025-03-03 17:08] LABS: PLATELET ESTIMATE NORMAL
[2025-03-03] MEDS ORDERED: METHYLPREDNISOLONE SOD SUCC 40MG/ML (ACT-O-VIAL) IV SCH (22:00)
== END 2025-03-03 20:35 | disposition short-term general hospital (02) | DRG 870 ==
LOC: ER 09:14 → MICUNO 14:01
PROVIDERS: ADMIT Internal Medicine; ATTEND Internal Medicine
PROC: 5A1955Z Respiratory Ventilation, Greater than 96 Consecutive Hours (ICD-10-PCS; 2025-02-22)
PROC: 0BH17EZ Insertion of Endotracheal Airway into Trachea, Via Natural or Artificial Opening (ICD-10-PCS; 2025-02-22)
PROC: 05HY33Z Insertion of Infusion Device into Upper Vein, Percutaneous Approach (ICD-10-PCS; principal; 2025-02-23)
PROC: B54MZZA Ultrasonography of Right Upper Extremity Veins, Guidance (ICD-10-PCS; 2025-02-23)
PROC: 5A09357 Assistance with Respiratory Ventilation, Less than 24 Consecutive Hours, Continuous Positive Airway Pressure (ICD-10-PCS; 2025-03-01)
DX: A41.9 Sepsis, unspecified organism (principal); G93.41 Metabolic encephalopathy; J69.0 Pneumonitis due to inhalation of food and vomit; L89.623 Pressure ulcer of left heel, stage 3; L89.613 Pressure ulcer of right heel, stage 3; L89.154 Pressure ulcer of sacral region, stage 4; L89.304 Pressure ulcer of unspecified buttock, stage 4; J96.92 Respiratory failure, unspecified with hypercapnia; L89.303 Pressure ulcer of unspecified buttock, stage 3; J18.9 Pneumonia, unspecified organism; R65.21 Severe sepsis with septic shock; J96.91 Respiratory failure, unspecified with hypoxia; N13.6 Pyonephrosis; E66.9 Obesity, unspecified; E78.00 Pure hypercholesterolemia, unspecified; G93.89 Other specified disorders of brain; H51.8 Other specified disorders of binocular movement; I10 Essential (primary) hypertension; Z74.01 Bed confinement status; Z86.73 Personal history of transient ischemic attack (TIA), and cerebral infarction without residual deficits; Z87.442 Personal history of urinary calculi; Z88.0 Allergy status to penicillin; Z93.1 Gastrostomy status; Z68.24 Body mass index [BMI] 24.0-24.9, adult
CPT/HCPCS: 31500; 31720; 36415; 36573; 36600; 71045; 74176; 80048; 80076; 80202; 80305; 81003; 82375; 82805; 82962; 83036; 83605; 84145; 84478; 84484; 85025; 87077; 87186; 87426; 92950; 93005; 93306; 93970; 94002; 94003; 94070; 94640; 94664; 94760; 98960; 99291; A4606; C1725; C1769; J0360; J0456; J1650; J1815; J2003; J2185; J2250; J2270; J2470; J2543; J2704; J2919; J3370; J3480; J3490; J7030; J7042; J7060